=== PATIENT | female | born 1975 | race Caucasian/White ===

== ENCOUNTER 2018-09-03 12:41 | Emergency (ER) | payer OTHER, SELFPAY ==
[2018-09-03] VITALS (8 sets, daily range): BP systolic 96–131; BP diastolic 52–85; PULSE 79–115; RESP 15–18; TEMP 36.9–38.3; O2SAT 93–100; BMI 18.6
--- NOTE | 2018-09-03 13:13 | CT_ITS ---
STUDY: CT ABDOMEN AND PELVIS WITH CONTRAST REASON FOR EXAM: Female, 43 years old. Mid abdominal and back pain. RADIATION DOSAGE (If Supplied By Facility): CTDIvol = ( 7.26 ) mGy, DLP = ( 382.97 ) mGycm TECHNIQUE: Transaxial images were obtained from the dome of the diaphragm to the symphysis pubis with oral contrast. 100ML ml of Isovue 300 contrast was administered. Sagittal and coronal images were reconstructed. Individualized dose optimization techniques were used for this CT. COMPARISON: None. FINDINGS: Mild degree of increased markings at the lung bases suggestive of bibasilar atelectasis. Minimal left pleural effusion. There is a 1 cm questionable nodular density in the lateral aspect of the right middle lobe. This may represent a focal area of atelectasis. The visualized portions of the heart are within normal limits. Normal liver. Normal gallbladder and extrahepatic biliary system. Normal spleen. Normal pancreas. Normal bilateral adrenal glands. Normal right kidney. Normal left kidney. There is a small hiatal hernia. Normal small intestine. Normal colon. The appendix is visualized and appears normal. Normal abdominal aorta. Normal inferior vena cava. Normal retroperitoneum. Distended urinary bladder. Dominant follicle in the left ovary measures 1.7 cm x 1.36. There is evidence of bilateral tubal ligation. Nabothian cyst. Normal abdominal wall. Normal osseous structures. Schmorl's nodes at the T11-T12 vertebral level. CT/Abdomen/Pelvis WITH Contrast IMPRESSION: Distended urinary bladder. Mild degree of bibasilar atelectasis and minimal left pleural effusion. Electronically Signed: Sudhir Carranza MD at 15:36 EST Tel [phone], Service support ,
[2018-09-03 13:32] LABS: Bacteria 0 SEEN /hpf (None Seen); Mucous, Urine 0 SEEN /hpf (<or=2+)
[2018-09-03] MEDS: 0.9% Normal Saline 1,000 ML 1000 ML IV (13:33)
[2018-09-03 13:34] LABS: Color, Urine Yellow (Yellow); Glucose, Dipstick Normal (Normal); Ketone-Dipstick Negative (Negative); Leukocyte Esterase-Dipstick Negative /ul (Negative); Nitrite-Dipstick Negative (Negative); Occult Blood-Urine 50 /ul (Negative); Protein-Dipstick Negative (Negative); Urine Bilirubin Dipstick Negative (Negative); Urine Clarity Sl. Cloudy (Clear); Urine Urobilinogen Normal (Normal)
[2018-09-03 13:40] LABS: Red Blood Cells-Urine 0-5 SEEN /hpf (0-5); Squamous Epithelial Cells - UA 0-5 SEEN /hpf (5-10); White Blood Cells 0-5 SEEN /hpf (0-5)
[2018-09-03 13:42] LABS: Absolute Lymphocyte Count 0.86 X10^3/ul (0.83-4.51); Basophil# 0.01 X10^3/uL; Basophil% 0.1 % (0-1); Eosinophil# 0.29 X10^3/uL; Hematocrit 42.8 % (37-47); Lymphocyte # 0.86 X10^3/ul (4.0); Mean Corp Hgb Conc 32.7 g/gl (32-36); Mean Corpuscular Hgb 31.5 pg (27.0-32.0); Mean Corpuscular Volume 96.2 fL (81-99); Mean Platelet Vol. 9.9 fl (6.2-12.0); Monocyte# 1.14 X10^3/uL; Neutrophil # 11.96 X10^3/uL (2.7-7.7); Neutrophil % 83.7 % (47-70); POSITIVE COUNT NO; POSITIVE DIFFERENTIAL NO; POSITIVE MORPHOLOGY NO; Platelet Count 187 K/mm3 (150-450); RBC Distribution Width CV 13.7 % (11.6-14.6); Red Blood Count 4.45 M/mm3 (4.2-5.4); White Blood Count 14.3 K/mm3 (4.4-11.0)
[2018-09-03 14:05] LABS: AST(SGOT) 17 U/L (15-37); Alanine Aminotransfer ALT/SGPT 23 U/L (13-56); Albumin, Serum 4.2 g/dL (3.2-5.0); Alkaline Phosphatase 66 U/L (45-117); Anion Gap 7 (5-15); BUN 7 mg/dL (7-18); BUN/Creat Ratio 8.9 RATIO (10-20); Calcium,Total 8.8 mg/dL (8.5-10.1); Chloride 101 mmol/L (98-107); Creatinine, Serum 0.79 mg/dL (0.55-1.02); EST Glomerular Filtration Rate 84 mL/min (>60); Est Glom Filt Rate - Afr Amer 101 mL/min (>60); Estimated Creatinine Clearance 74.25 ml/min; Glucose 105 mg/dL (74-106); Potassium 3.5 mmol/L (3.5-5.1); Protein, Total 8.2 g/dL (6.4-8.2); Sodium Level 135 mmol/L (136-145)
--- NOTE | 2018-09-03 15:08 | ED.RN ---
DR BRANNON AWARE OF PT TRIGGERING SEPSIS RISK WITH HEART RATE >90, WBC 14.3. NO NEW ORDERS AT THIS TIME.
--- NOTE | 2018-09-03 16:13 | ED.RN ---
NOTIFIED TEMP 101. PT COVERED WITH 4 BLANKETS, STATES SHE IS ALWAYS FREEZING. WILL RECHECK.
[2018-09-03] MEDS: Acetaminophen 500 MG Tablet 1000 MG PO (16:26)
--- NOTE | 2018-09-03 16:30 | RAD_ITS ---
STUDY: X-RAY CHEST REASON FOR EXAM: Female, 43 years old. Fever TECHNIQUE: Frontal and lateral views of the chest were obtained. COMPARISON: None. FINDINGS: Lines and tubes: None. Lungs: Adequately aerated. Minimal increased markings in both lung bases. Pleura: Trace blunting of the left costophrenic angle. Mediastinum/wolfgang: Unremarkable. Cardiovascular: Normal size cardiac silhouette. Central vascularity unremarkable. Thoracic aorta unremarkable. Soft tissues: Unremarkable. Bones: Unremarkable. Upper abdomen: No demonstrated abnormality. RAD/Chest PA and Lateral IMPRESSION: Trace left pleural effusion without evidence of focal consolidation. Minimal bibasilar atelectasis. Electronically Signed: Belia Lockwood MD at 17:16 EST Tel Direct: [phone], Service support ,
--- NOTE | 2018-09-03 16:41 | ED.DCSUM_ITS ---
- ER Visit Summary Date of Service: 09/03/18 Chief Complaint: Abdominal pain. History of Present Illness: The patient is a 43 F with chief complaint of abdominal pain. She actually started having symptoms about a week ago, she had pressure in her bladder and was placed on Bactrim. She still has some symptoms but now she has some back pain associated with cough and it was noticed that she had a fever of 100.4. She has a cough and upper airway congestion, however that is only found on review of systems and she is not complaining of these. Nausea vomiting diarrhea. No vaginal discharge, no dyspareunia. Physical Examination: She is sitting comfortably in bed speaking to me, she last. She certainly does not appear toxic. Moist mucous membranes, she has rhinorrhea, bulging TMs bilaterally, she has postnasal drip. She has swollen nasal turbinates. No C-spine tenderness supple neck. Regular rate and rhythm without any obvious murmurs Clear lungs bilaterally speaking in full sentences without any obvious respiratory distress Abdomen soft with right lower quadrant and pelvic tenderness. This is been the pain she has had in the past. Does not have flank pain she has upper back pain Skin does not show any obvious rashes or lesions, no trauma. Alert oriented ?3 with no gross focal deficit Emergency Department Course and Treatment: Patient initially had an unremarkable temperature. She developed a temperature in the emergency department. IV fluids were given and Tylenol. She had an unremarkable p.o. and IV contrast CT. She has no urinary tract infection. She is complaining of a cough with congestion. She does have upper respiratory symptoms which could cause a fever. She did not have an influenza vaccine this year. Therefore after reevaluation I ordered IV fluids, and Tylenol. Patient will be reevaluated. If her heart rate improves as well as a temperature she likely can be discharged home. There is no abdominal catastrophe or infectious etiology. I ambulated the patient and she did quite well she does not feel dizzy, she does not feel ill. She does not appear toxic. I will order blood cultures. Disposition: Plan will be to discharge pending results and reassessment Impression: Abdominal pain Fever Upper respiratory infection symptoms This note was generated with [employer] software. It may contain incorrect words, spelling, and punctuation that were not noted in review of the chart prior to signing ED Disposition - Plan for ED Patient: Chief Complaint: Abd Pain Referrals: Louis Florence [Primary Care Provider] -
--- NOTE | 2018-09-03 17:01 | ED.DEP ---
ED Disposition - Plan for ED Patient: Disposition: Home or Assisted Living Chief Complaint: Abd Pain Instructions: ED URI Viral Referrals: Piotr Parson MD [STAFF PHYSICIAN] - 3-5 Days
[2018-09-03] MEDS: 0.9% Normal Saline 1,000 ML 999 ML IV (17:15)
--- NOTE | 2018-09-03 18:09 | ED.DCSUM_ITS ---
- ER Visit Summary Date of Service: 09/03/18 Chief Complaint: Addendum to initial dictation by Dr. Justo Buckner] History of Present Illness: The patient is a 43 F [who was fully evaluated initially by and care of patient turned over to me awaiting results of influenza screen. The influenza screen here was negative. Patient was written for discharge instructions by the previous ER physician.] Physical Examination: [On repeat exam patient feels well. Patient's lungs are clear and she has no respiratory difficulty.] Test Results: [Influenza negative. Chest x-ray was noted to have a small left pleural effusion but no infiltrates.] Emergency Department Course and Treatment: [] Treatment Plan: [Patient to finish her Bactrim prescription that she is currently on for UTI.] Disposition: [Discharged home in stable condition. Patient advised to return if increasing dyspnea or condition should worsen anyway. Impression: [Viral URI] This note was generated with [employer] dictation software. It may contain incorrect words, spelling, and punctuation that were not noted in review of the chart prior to signing ED Disposition - Plan for ED Patient: Disposition: Home or Assisted Living Chief Complaint: Abd Pain Instructions: ED URI Viral Referrals: Piotr Parson MD [STAFF PHYSICIAN] - 3-5 Days
== END 2018-09-03 18:16 | disposition home or self-care (01) ==
PROVIDERS: Emergency Provider Emergency Medicine; Family Provider Family Medicine; PCP Family Medicine
DX: J06.9 Acute upper respiratory infection, unspecified (principal); R10.9 Unspecified abdominal pain; N39.0 Urinary tract infection, site not specified; J90 Pleural effusion, not elsewhere classified; Z72.0 Tobacco use
CPT/HCPCS: 71046; 74177; 80053; 81001; 85025; 87804; 96360; 96361; 99284; J7030; Q9967; A4216

== ENCOUNTER → 2018-09-17 15:30 | Outpatient (CLI) | payer OTHER, SELFPAY ==
[2018-09-03 12:41] VITALS: BMI 18.6
[2018-09-18 13:57] LABS: Chlamydia Trachomatis by PCR Negative (Negative); Neisserai gonorrhoeae by PCR Negative (Negative); Probe Check PASS; Sample Adequacy Control PASS; Specimen Processing Control PASS
[2018-09-20 11:41] LABS: HPV Reflexed? NOT INDICATED
--- OUTSIDE RECORDS SUMMARY | 2018-11-20 06:31 | XMS RPT_ITS ---
:1975 Author Organization OHIP Care Team Providers Name Role Phone MATEO REECE Admitting Unavailable MATEO REECE Attending Unavailable MATEO REECE Primary Care Unavailable Louis Florence Primary Care Unavailable Justo Buckner Attending Unavailable Mateo Reece Attending Unavailable PROBLEMS PROBLEMS DATE TYPE CONDITION / CODE ATTENDING STATUS SOURCE 09/18/2018 Unknown Z12.4 - Encounter Mateo Reece for screening for Community malignant neoplasm Hospital of cervix / Repository Z12.4(ICD-10) 09/18/2018 Unknown Z11.3 - Encounter Mateo Reece for screening for Community infections with a Hospital predominantly Repository sexual mode of transmission / Z11.3(ICD-10) PROCEDURES PROCEDURES No Procedure Records FoundRESULTS RESULTS TSH Collected: 09/17/2018 Status: F Source: [facility] 3:30 PM [facility] REPOSITORY TYPE CODE TESTS RESULT OUT OF RANGE REFERENCE UNITS LAB TSH(LOINC) 0.34 - 5.60 uIU/ml TSH 3.73 Performed By: #### [id number] #### [facility],[address] [place] [address] FSH [CCL] Collected: 09/17/2018 Status: F Source: [facility] 3:30 PM [facility] REPOSITORY TYPE CODE TESTS RESULT OUT OF RANGE REFERENCE UNITS LAB FSH [CCL](LOINC ) FSH [CCL] Result Comment: _FSH [CCL]_ FSH [CCL] Reported: 09/19/2018 10:57 Status=F TEST RESULT FLAG RANGE UNITS FSH 60.4 mU/mL 09/19/18.1100.[email or web address].ATLR Reference range: Follicular: 2-11 Midcycle: 10-30 Luteal: 1-9 Post Erika: 20-100 [facility] [address] [place] [address] Eloise Hull M.D. [id number] Performed By: #### [id number] #### [facility],[address] [place] [address] FSH Collected: 09/17/2018 Status: F Source: [place] 3:30 PM [facility]IN[facility] REFERENCE REPOSITORY TYPE CODE TESTS RESULT OUT OF RANGE REFERENCE UNITS LAB FSH([facility]) FSH Result Comment: 60.4 Reference Follicular: 2-11 Midcycle: 10-30 Luteal: 1-9 Post Erika: 20-100 range: Follicular: 2-11 Midcycle: 10-30 Luteal: 1-9 Post Hersey: 20-100 Performed By: #### FSH #### [facility] Routine Lab [address] [address] [address]/NG [facility] BY PCR Collected: 09/17/2018 Status: F Source: [place] 3:30 PM [facility] [place] TYPE CODE TESTS RESULT OUT OF RANGE REFERENCE UNITS LAB L8200.2100 Negative Normal Chlam Negative Trac PCR LAB L8200.2200 Negative Normal NG by Negative PCR Performed By: #### L8200.2000 #### [facility] [place], [address] PAP IG W/REFLEX HR Collected: 09/17/2018 Status: F Source: [facility] 3:30 PM [facility] [place] Order Comment: CYTOLOGY INFORMATION: - CLINICAL INFORMATION: - DATE LMP/MENOPAUSE: 06/23/18 LMP - COLLECTION VIAL: Thin Prep Vial - POPCORN ATTENDANT SOURCE: CERVICAL/ENDOCERVICAL - COLLECTION TECHNIQUE: BRUSH/SPATULA Specimen Comment: [id number] Specimen Comment: Source.............Cervix;Endocervix Specimen Comment: LMP / Prev Treat...[id number] Specimen Comment: No. of containers..01 ThinPrep Vial TYPE CODE TESTS RESULT OUT OF RANGE REFERENCE UNITS LAB L7400.0800 . Normal DIAGN Comment Result Comment: NEGATIVE FOR INTRAEPITHELIAL LESION OR MALIGNANCY. LAB L7400.0900 . Normal ADEQ Comment Result Comment: Satisfactory for evaluation. Endocervical and/or squamous metaplastic cells (endocervical component) are present. LAB L7400.1400 . Normal PERFORM Comment Result Comment: Daniela Maki Commutator Inspector (ASCP) LAB L7400.2575 . Normal TEST METHOD Comment Result Comment: This liquid based ThinPrep(R) pap test was screened with the use of an image guided system. LAB L7400.2600 . Normal . COMM LAB L7400.2700 . Normal PAPSMR Comment Result Comment: The Pap smear is a screening test designed to aid in the detection of premalignant and malignant conditions of the uterine cervix. It is not a diagnostic procedure and should not be used as the sole means of detecting cervical cancer. Both false-positive and false-negative reports do occur. LAB L7400.2800 . Normal HPV RFLX Comment Result Comment: The HPV DNA reflex criteria were not met with this specimen result therefore, no HPV testing was performed. Performed at: [address] [id number] Solar Sales Estimator: Emily Dias MD, Phone: [phone] Performed By: #### L7400.0357 #### [facility] (refer to report for specific site) refer to report for address and phone number EMERGENCY DEPARTMENT Observed: 2018 Status: F Source: [place] SUMMARY 6:09 PM [facility] [place] [facility] Medical Records Department [address] [place] [address] Emergency Department Summary 09/03/181806 MR#: [id number] Acct: [id number] Name: JACOB CARTER Rep #: [id number] : 1975 43 From: Saturnino Estrada DO PCP: Louis Florence MD Status: REG ER - ER Visit Summary Date of Service: 09/03/18 Chief Complaint: Addendum to initial dictation by Dr. Justo Buckner] History of Present Illness: The patient is a 43 F [who was fully evaluated initially by and care of patient turned over to me awaiting results of influenza screen. The influenza screen here was negative. Patient was written for discharge instructions by the previous ER physician.] Physical Examination: [On repeat exam patient feels well. Patient's lungs are clear and she has no respiratory difficulty.] Test Results: [Influenza negative. Chest x-ray was noted to have a small left pleural effusion but no infiltrates.] Emergency Department Course and Treatment: [] Treatment Plan: [Patient to finish her Bactrim prescription that she is currently on for UTI.] Disposition: [Discharged home in stable condition. Patient advised to return if increasing dyspnea or condition should worsen anyway. Impression: [Viral URI] This note was generated with Southtree dictation software. It may contain incorrect words, spelling, and punctuation that were not noted in review of the chart prior to signing ED Disposition - Plan for ED Patient: Disposition: Home or Assisted Living Chief Complaint: Abd Pain Instructions: ED URI Viral Referrals: Mateo Parson MD [STAFF PHYSICIAN] - 3-5 Days What to do if you have Problems For any increased pain, shortness of breath, bleeding, nausea or vomiting, chest pain, or any unexpected problems, contact your Primary Care Provider. Call [facility] ([phone]) or report to the closest Emergency Room. Call 911 if necessary. 09/03/181808 <Electronically signed by Remus Ungur DO> Date Remus Ungur DO Cosigner Signature (If Indicated): Date CC: Louis Florence MD EMERGENCY DEPARTMENT Observed: 2018 Status: F Source: [place] SUMMARY 5:04 PM [facility] [place] [facility] Medical Records Department [address] [place] [address] Emergency Department Summary 09/03/18 1634 MR#: [id number] Acct: [id number] Name: JACOB CARTER Rep #: [id number] : 1975 43 From: Justo Buckner MD PCP: Louis Florence MD Status: REG ER - ER Visit Summary Date of Service: 09/03/18 Chief Complaint: Abdominal pain. History of Present Illness: The patient is a 43 F with chief complaint of abdominal pain. She actually started having symptoms about a week ago, she had pressure in her bladder and was placed on Bactrim. She still has some symptoms but now she has some back pain associated with cough and it was noticed that she had a fever of 100.4. She has a cough and upper airway congestion, however that is only found on review of systems and she is not complaining of these. Nausea vomiting diarrhea. No vaginal discharge, no dyspareunia. Physical Examination: She is sitting comfortably in bed speaking to me, she last. She certainly does not appear toxic. Moist mucous membranes, she has rhinorrhea, bulging TMs bilaterally, she has postnasal drip. She has swollen nasal turbinates. No C-spine tenderness supple neck. Regular rate and rhythm without any obvious murmurs Clear lungs bilaterally speaking in full sentences without any obvious respiratory distress Abdomen soft with right lower quadrant and pelvic tenderness. This is been the pain she has had in the past. Does not have flank pain she has upper back pain Skin does not show any obvious rashes or lesions, no trauma. Alert oriented 3 with no gross focal deficit Emergency Department Course and Treatment: Patient initially had an unremarkable temperature. She developed a temperature in the emergency department. IV fluids were given and Tylenol. She had an unremarkable p.o. and IV contrast CT. She has no urinary tract infection. She is complaining of a cough with congestion. She does have upper respiratory symptoms which could cause a fever. She did not have an influenza vaccine this year. Therefore after reevaluation I ordered IV fluids, and Tylenol. Patient will be reevaluated. If her heart rate improves as well as a temperature she likely can be discharged home. There is no abdominal catastrophe or infectious etiology. I ambulated the patient and she did quite well she does not feel dizzy, she does not feel ill. She does not appear toxic. I will order blood cultures. Disposition: Plan will be to discharge pending results and reassessment Impression: Abdominal pain Fever Upper respiratory infection symptoms This note was generated with Kelkooation software. It may contain incorrect words, spelling, and punctuation that were not noted in review of the chart prior to signing ED Disposition - Plan for ED Patient: Chief Complaint: Abd Pain Referrals: Louis Florence [Primary Care Provider] - What to do if you have Problems For any increased pain, shortness of breath, bleeding, nausea or vomiting, chest pain, or any unexpected problems, contact your Primary Care Provider. Call [facility] ([phone]) or report to the closest Emergency Room. Call 911 if necessary. 09/03/181703 <Electronically signed by Justo Buckner MD> Date Justo Buckner MD Cosigner Signature (If Indicated): Date CC: Louis Florence MD DISCHARGE INSTRUCTION Observed: 2018 Status: F Source: [place] 5:03 PM [facility] [place] [facility] Medical Records Department [address] [place] [address] Discharge Instruction 09/03/181700 MR#: [id number] Acct: [id number] Name: JACOB CARTER Rep #: [id number] : 1975 43 From: Justo Buckner MD PCP: Louis Florence MD Status: REG ER ED Disposition - Plan for ED Patient: Disposition: Home or Assisted Living Chief Complaint: Abd Pain Instructions: ED URI Viral Referrals: Mateo Parson MD [STAFF PHYSICIAN] - 3-5 Days What to do if you have Problems For any increased pain, shortness of breath, bleeding, nausea or vomiting, chest pain, or any unexpected problems, contact your Primary Care Provider. Call [facility] ([phone]) or report to the closest Emergency Room. Call 911 if necessary. 09/03/18 1703 <Electronically signed by Justo Buckner MD> Date Justo Buckner MD Cosigner Signature (If Indicated): Date CC: Louis Florence MD Observed: 2018 Status: F Source: [place] INFLUENZA A+B (RAPID 5:00 PM [facility] [place] [place] REPOSITORY FLU A/B Rapid Negative test results should be confirmed with FLU PANEL MOLECULAR if indicated. Influenza Ag, Direct Presumptive NEGATIVE for Influenza A/B Antigen (See Note) Performed By: #### M101.0101 #### [facility] [address] [place] [address]. [place], [address] CHEST PA AND LATERAL Observed: 2018 Status: F Source: [place] 4:26 PM [facility] [place] [facility] Imaging Services [address] [place] [address] Chest PA and Lateral MR#: [id number] Acct: [id number] Name: JACOB CARTER Rep #: [id number] : 1975 F 43 From: Belia Lockwood MD PCP: Louis Florence MD Status: REG ER Study: Chest PA and Lateral Date of Exam: 09/03/18 Exam# [id number] Ordering Dr: Justo Buckner MD STUDY: X-RAY CHEST REASON FOR EXAM: Female, 43 years old. Fever TECHNIQUE: Frontal and lateral views of the chest were obtained. COMPARISON: None. FINDINGS: Lines and tubes: None. Lungs: Adequately aerated. Minimal increased markings in both lung bases. Pleura: Trace blunting of the left costophrenic angle. Mediastinum/wolfgang: Unremarkable. Cardiovascular: Normal size cardiac silhouette. Central vascularity unremarkable. Thoracic aorta unremarkable. Soft tissues: Unremarkable. Bones: Unremarkable. Upper abdomen: No demonstrated abnormality. RAD/Chest PA and Lateral IMPRESSION: Trace left pleural effusion without evidence of focal consolidation. Minimal bibasilar atelectasis. Electronically Signed: Belia Lockwood MD at 17:16 EST Tel Direct: [phone], Service support , CC: Justo Buckner MD; Louis Florence MD Investigation Specialist: Signed URINALYSIS, COMPLETE Collected: 2018 Status: F Source: [place] 1:20 PM [facility] [place] Order Comment: How was Urine Obtained? CLEAN CATCH TYPE CODE TESTS RESULT OUT OF RANGE REFERENCE UNITS LAB L400.3000 Yellow COLOR Normal Yellow LAB L400.3050 Clear Normal CLARITY Sl. Cloudy LAB L400.3200 Normal mg/dl Normal GLUCOSE, UR Normal LAB L400.3300 Negative mg/dL Normal BILIRUBIN URINE Negative LAB L400.3400 Negative mg/dl Normal KETONE UR Negative LAB L400.3465 1.002-1.030 Normal SP.GR. DIPSTX 1.010 LAB L400.3550 5.0 - 8.0 pH UR Normal 8.0 LAB L400.3600 Negative mg/dl PROT Normal DIPSTX Negative LAB L400.3700 Normal mg/dl Normal UROBILI Normal LAB L400.3750 Negative Normal NITRITE UR Negative LAB L400.3780 Negative /ul High 50 OCCULT BLOOD-UR LAB L400.3800 Negative /ul LEUK Normal ESTERASE Negative LAB L400.4050 0-5 /hpf WBC Normal 0-5 SEEN LAB L400.4100 0-5 /hpf Normal RBC-UA 0-5 SEEN LAB L400.4150 5-10 /hpf SQUAM Normal EPI 0-5 SEEN LAB L400.4300 None Seen /hpf 0 Normal BACTERIA SEEN LAB L400.4350 <or=2+ /hpf 0 Normal MUCUS, URINE SEEN Performed By: #### L400.0001 #### [facility] [address] [place], [place], [id number] CBC W/DIFF, AUTOMATED Collected: 2018 Status: F Source: [place] 1:20 PM [facility] [place] TYPE CODE TESTS RESULT OUT OF RANGE REFERENCE UNITS LAB L100.1000 4.4-11.0 K/mm3 High WBC 14.3 LAB L100.1200 4.2-5.4 M/mm3 Normal RBC 4.45 LAB L100.1300 12.0-15.0 g/dl Normal HGB 14.0 LAB L100.1400 37-47 % Normal HCT 42.8 LAB L100.1500 81-99 fL Normal MCV 96.2 LAB L100.1600 27.0-32.0 pg Normal MCH 31.5 LAB L100.1700 32-36 g/gl Normal MCHC 32.7 LAB L100.1810 11.6-14.6 % Normal RDW CV 13.7 LAB L100.1820 35.1-43.9 fl High RDW SD 48.0 LAB L100.1900 150-450 K/mm3 Normal PLT 187 LAB L100.2000 6.2-12.0 fl Normal MPV 9.9 LAB L100.2100 47-70 % High NEUT% 83.7 LAB L100.2200 19-41 % Low LY% 6.0 LAB L100.2300 0-10 % Normal MONO% 8.0 LAB L100.2400 0-5 % Normal EO% 2.0 LAB L100.2500 0-1 % Normal BASO% 0.1 LAB L100.2550 0.0-0.9 % Normal IM GRAN % 0.200 Result Comment: IG% - Immature Granulocytes (promyelocytes, myelocytes and metamyelocytes) > 1% indicates that a LEFT SHIFT is Present. LAB L100.2620 2.0-7.7 X10 3/uL High Absolute Neut 12.0 LAB L100.2720 0.83-4.51 X10 3/ul Normal Absolute Lymph 0.86 Performed By: #### L100.0100 #### [facility] [address] [place], [address] COMPREHENSIVE METABOLIC Collected: 2018 Status: F Source: [facility] 1:20 PM [facility] [place] TYPE CODE TESTS RESULT OUT OF RANGE REFERENCE UNITS LAB L501.0100 74-106 mg/dL Normal GLU 105 Result Comment: Fasting Glucose result from 100 to 125 mg/dL suggests IMPAIRED HOMEOSTASIS per A.D.A. criteria. Please note revised GLUCOSE reference range effective 2017. LAB L501.1000 7-18 mg/dL Normal BUN 7 LAB L501.1100 0.55-1.02 mg/dL Normal CREAT,SERUM 0.79 Result Comment: The validity of the calculated GFR AND GFRAA in patients over 70 years has not been determined. Clinical correlation is essential. LAB L501.1110 >60 mL/min Normal EST GFR 84 Result Comment: Non- GFR Calc LAB L501.1115 >60 mL/min Normal EST GFR - AA 101 Result Comment: GFR Calc LAB L501.1255 ml/min Normal Estimated CRCL 74.25 LAB L501.1300 10-20 RATIO Low BUN/CRE 8.9 LAB L501.1500 6.4-8. g/dL Normal 2 T PROT 8.2 LAB L501.1800 3.2-5. g/dL Normal 0 ALB 4.2 LAB L501.1950 2.2-4. g/dL Normal 2 GLOB 4.0 LAB L501.2000 0.9-2. RATIO Normal 4 A/G 1.0 LAB L501.2200 8.5-10 mg/dL Normal .1 CA 8.8 LAB L501.4100 15-37 U/L Normal AST 17 LAB L501.4305 45-117 U/L Normal ALK P 66 LAB L501.4405 13-56 U/L Normal ALT 23 LAB L501.4600 0.20-1 mg/dL Normal .00 T BILI 0.90 LAB L501.5300 136-14 mmol/L Low 5 NA 135 LAB L501.5600 3.5-5. mmol/L Normal 1 K 3.5 LAB L501.5900 98-107 mmol/L Normal CL 101 LAB L501.6100 21.0-3 mmol/L Normal 2.0 CO2 27.0 LAB L501.6200 5-15 Normal GAP 7 Performed By: #### L500.4050 #### [facility] [address] [facility] [place], [address] ABDOMEN/PELVIS WITH Observed: 2018 Status: F Source: [place] CONTRAST 1:14 PM [facility] [place] [facility] Imaging Services [address] [place] [address] Abdomen/Pelvis WITH Contrast MR#: [id number] Acct: [id number] Name: BERNARDOJACOB Saravanan Rep #: [id number] : 1975 F 43 From: Sudhir Carranza MD PCP: Louis Florence MD Status: REG ER Study: Abdomen/Pelvis WITH Contrast Date of Exam: 09/03/18 Exam# [id number] Ordering Dr: Justo Buckner MD STUDY: CT ABDOMEN AND PELVIS WITH CONTRAST REASON FOR EXAM: Female, 43 years old. Mid abdominal and back pain. RADIATION DOSAGE (If Supplied By Facility): CTDIvol = ( 7.26 ) mGy, DLP = ( 382.97 ) mGycm TECHNIQUE: Transaxial images were obtained from the dome of the diaphragm to the symphysis pubis with oral contrast. 100ML ml of Isovue 300 contrast was administered. Sagittal and coronal images were reconstructed. Individualized dose optimization techniques were used for this CT. COMPARISON: None. FINDINGS: Mild degree of increased markings at the lung bases suggestive of bibasilar atelectasis. Minimal left pleural effusion. There is a 1 cm questionable nodular density in the lateral aspect of the right middle lobe. This may represent a focal area of atelectasis. The visualized portions of the heart are within normal limits. Normal liver. Normal gallbladder and extrahepatic biliary system. Normal spleen. Normal pancreas. Normal bilateral adrenal glands. Normal right kidney. Normal left kidney. There is a small hiatal hernia. Normal small intestine. Normal colon. The appendix is visualized and appears normal. Normal abdominal aorta. Normal inferior vena cava. Normal retroperitoneum. Distended urinary bladder. Dominant follicle in the left ovary measures 1.7 cm x 1.36. There is evidence of bilateral tubal ligation. Nabothian cyst. Normal abdominal wall. Normal osseous structures. Schmorl's nodes at the T11-T12 vertebral level. CT/Abdomen/Pelvis WITH Contrast IMPRESSION: Distended urinary bladder. Mild degree of bibasilar atelectasis and minimal left pleural effusion. Electronically Signed: Sudhir Carranza MD at 15:36 EST Tel [phone], Service support , CC: Justo Buckner MD; Louis Florence MD Investigation Specialist: Signed PROGRESS Observed: 2018 Status: COMPLETED Source: [place] 12:39 PM [facility] [place] REPOSITORY HNO ID: [id number] Author: Mandy Cates Service: (none) Author Type: Nurse Practitioner Type: Progress Notes Filed: 2018 12:58 PM Note Text: Subjective The history is provided by the patient. No sign language instructor was used. JESSIE Jacob Carter is a 43 year old female who presents today for CC of pelvic pain and lower dull back pain. This started 5 days ago and is worsening. She has been on macrobid since 08/29 for UTI symptoms and no improvement. She tried to get into her pcp and POPCORN ATTENDANT no appointments available. BP 110/70 Pulse 106 Temp (!) 38 ?C (100.4 ?F) (Tympanic) Resp 18 Wt 52.2 kg (115 lb) Social History Marital status: Spouse name: Years of education: Number of children: Social History Main Topics Smoking status: Current Every Day Smoker Packs/day: 0.00 Years: 0.00 Smokeless tobacco: Never Used No past medical history on file. I have confirmed and edited as necessary, the [facility] ROS Objective Physical Exam Due to nature of patient's complaint and lack of investigative tools available at [facility], recommend patient be seen at nearest ED for further work up of abdominal pain. Patient's daughter was with her will take to [place] ED, information sent with patient. ED notified Diagnosis and treatment plan were discussed and questions were answered to the patient's satisfaction. Pt acknowledged understanding of concepts and follow up plan. Specific signs and symptoms that would indicate the need for higher level of care were discussed in detail warranting prompt ER evaluation. FAWAD ReynaOV Observed: 2018 Status: COMPLETED Source: [place] 11:45 AM [facility] REPOSITORY Office Visit (WSTR) JACOB CARTER ([id number]) 1975 F Date Time Provider Department 09/03/18 11:45 AM MANDY CATES (KAREN) WSTR During your visit today, we recorded the following information about you: Temperature Pulse Respiration Blood pressure 100.4 degrees 106/minute 18/minute 110/70 Weight 52.2 kg Mandy Cates APRN.CNP 2018 12:58 PM Signed Subjective The history is provided by the patient. No sign language instructor was used. HPI Jacob Carter is a 43 year old female who presents today for CC of pelvic pain and lower dull back pain. This started 5 days ago and is worsening. She has been on macrobid since 08/29 for UTI symptoms and no improvement. She tried to get into her pcp and POPCORN ATTENDANT no appointments available. BP 110/70 Pulse 106 Temp (!) 38 ?C (100.4 ?F) (Tympanic) Resp 18 Wt 52.2 kg (115 lb) Social History Marital status: Spouse name: Years of education: Number of children: Social History Main Topics Smoking status: Current Every Day Smoker Packs/day: 0.00 Years: 0.00 Smokeless tobacco: Never Used No past medical history on file. I have confirmed and edited as necessary, the [facility] ROS Objective Physical Exam Due to nature of patient's complaint and lack of investigative tools available at [facility], recommend patient be seen at nearest ED for further work up of abdominal pain. Patient's daughter was with her will take to [place] ED, information sent with patient. ED notified Diagnosis and treatment plan were discussed and questions were answered to the patient's satisfaction. Pt acknowledged understanding of concepts and follow up plan. Specific signs and symptoms that would indicate the need for higher level of care were discussed in detail warranting prompt ER evaluation. Mandy Cates APRN.WHARF HELPER Referring Provider: SELF [200] Allergies As of Date: 2018 Noted Allergy Reaction SULFA (SULFONAMIDE ANTIBIOTICS) 06/26/2013 10 - Anaphylaxis Z MELIA (AZITHROMYCIN) 06/26/2013 2 - Rash Date Reviewed: 2018 Reviewed by: Janelle Seth LPN - Fully Assessed Reason for Visit: Pain, Back [855] Cmt: was seen last week and curntly on Macrobid but dos not think she is geting better Primary Visit Diagnosis:Low back pain, unspecified back pain laterality, unspecified chronicity, with sciatica presence unspecified [M54.5] Order(s):UA DIP, URINE (POC) [[id number]] Order #: [id number] #:[id number] Prescriptions as of 2018 Sig: NITROFURANTOIN MONOHYDRATE AND * Take 1 capsule by mouth twice* Problem List As Of Date: 2018 (None) Letter Text Jacob [facility] [address] [facility] [address] Dept: [phone] Date this form was last completed: 2018 Reason for Emergency Transport: Fever and lower abdominal and pelvic pain Name: Jacob Carter [facility] Number : [id number] Age: [age] year old : 1975 Address: [address] [place], [place] [id number] (home) Primary care physician: MD Louis Shay MD ([facility]) [address] [facility] [place] [address] Current Vital Signs: BP 110/70 Pulse 106 Temp (!) 38 ?C (100.4 ?F) (Tympanic) Resp 18 Wt 52.2 kg (115 lb) Allergies: Sulfa (Sulfonamide Antibiotics); Z Melia [Azithromycin] Current Medications: Current Outpatient Prescriptions: nitrofurantoin monohydrate and macrocrystal (MACROBID) 100 mg capsule Take 1 capsule by mouth twice daily with meals for 7 days. No current facility-administered medications for this visit. Component Latest Ref Rng AND Units 2018 GLUCOSE UA (POCT) Negative mg/dL Negative BILIRUBIN UA (POCT) Negative Negative KETONE UA (POCT) Negative mg/dL Negative SPECIFIC GRAVITY UA (POCT) 1.005 - 1.030 1.015 HEMOGLOBIN/BLOOD UA (POCT) Negative Moderate (A) PH UA (POCT) 4.5 - 8.0 7.5 PROTEIN UA (POCT) Negative mg/dL Negative UROBILINOGEN UA (POCT) Normal E.U./dL 0.2 NITRITE UA (POCT) Negative Negative LEUKOCYTES UA (POCT) Negative Negative COLOR UA (POCT) Yellow CLARITY UA (POCT) Clear Culture (Final) CCM 10,000 - <50,000 CFU/ml Normal urogenital erick Result History URINE CULTURE (Order #[id number]) on 08/31/2018 - Order Result History Report Result Information Status: Final result (Collected: 08/29/2018 ?3:39 AM) Provider Status: Reviewed Problem List: There is no problem list on file for this patient. Past Medical History: No past medical history on file. Past Surgical History: No past surgical history on file. Insurance information: Payor: MMO / Plan: MMO [employer] / Product Type: PPO / Emergency Contact: Extended Emergency Contact Information Primary Emergency Contact: Irma Carter Mobile Relation: Spouse Encounter Status:Closed by MANDY CATES CNP on 09/03/18 PROGRESS Observed: 08/29/2018 Status: COMPLETED Source: [place] 2:33 PM [facility] [place] REPOSITORY HNO ID: [id number] Author: Danitza Garcia) Service: (none) Author Type: Nurse Practitioner Type: Progress Notes Filed: 08/29/2018 2:56 PM Note Text: Subjective HPI HPI Jacob Carter is a 42 year old female who presents today for CC of urinary burning. This started 11 days ago. Has tried azo with relief. Symptoms are worsened by nothing. Risk factors hx of uti, this feels classic for patients symptoms. Patient keyon menopausal, no recent period .Patient presents with: UTI No past medical history on file. No past surgical history on file. ALLERGIES Sulfa (Sulfonamide Antibiotics); Z Melia [Azithromycin] MEDICATIONS No prescriptions on file. No family history on file. Social History Substance Use Topics - Smoking status: Current Every Day Smoker - Smokeless tobacco: Never Used - Alcohol use Not on file Review of Systems Constitutional: Negative for chills, fever and weight loss. Respiratory: Negative for cough, shortness of breath and wheezing. Cardiovascular: Negative for chest pain and palpitations. Gastrointestinal: Negative for abdominal pain, blood in stool, constipation, diarrhea, heartburn, melena, nausea and vomiting. Genitourinary: Positive for dysuria. Negative for flank pain, frequency, hematuria and urgency. Objective Blood pressure 90/60, pulse 79, temperature 36.1 ?C (97 ?F), temperature source Left Tympanic, resp. rate 16, weight 53.1 kg (117 lb), SpO2 99 %. Physical Exam Constitutional: She is well-developed, well-nourished, and in no distress. Non-toxic appearance. She does not have a sickly appearance. No distress. Cardiovascular: Normal rate, regular rhythm and normal heart sounds. Pulmonary/Chest: Effort normal and breath sounds normal. Abdominal: Soft. Normal appearance and bowel sounds are normal. There is no hepatosplenomegaly. There is no tenderness. There is no CVA tenderness. Skin: Skin is warm and dry. ASSESSMENT/PLAN: 1. Dysuria - ICD9: 788.1, ICD10: R30.0 acute - UA positive for hematuria - Send urine for culture - Begin treatment with Macrobid 100 mg BID for 7 days - Patient education for prevention given - UA DIP, URINE (POC) - URINE CULTURE - NITROFURANTOIN MONOHYDRATE AND MACROCRYSTAL 100 MG ORAL CAP Prescription instructions reviewed with patient as applicable. Patient advised if symptoms do not improve or if symptoms worsen sooner, to contact the office for further evaluation by their primary care physician. Potential red flag symptoms discussed with the patient. Reviewed appropriate action plan to take if red flag symptoms occur. Patient agreeable to treatment plan. Danitza Colin APRN.CNP CNOV Observed: 08/29/2018 Status: COMPLETED Source: [place] 2:15 PM [facility] REPOSITORY Office Visit ([facility]) BERNARDOJACOB Saravanan ([id number]) 1975 F Date Time Provider Department 08/29/18 2:15 PM DANITZA COLIN (KAREN) [facility] During your visit today, we recorded the following information about you: Temperature Pulse Respiration Blood pressure 97 degrees 79/minute 16/minute 90/60 Weight 53.1 kg Danitza Colin APRN.CNP 08/29/2018 2:56 PM Signed Subjective HPI HPI Jacob Saravanan Carter is a 42 year old female who presents today for CC of urinary burning. This started 11 days ago. Has tried azo with relief. Symptoms are worsened by nothing. Risk factors hx of uti, this feels classic for patients symptoms. Patient keyon menopausal, no recent period .Patient presents with: UTI No past medical history on file. No past surgical history on file. ALLERGIES Sulfa (Sulfonamide Antibiotics); Z Melia [Azithromycin] MEDICATIONS No prescriptions on file. No family history on file. Social History Substance Use Topics - Smoking status: Current Every Day Smoker - Smokeless tobacco: Never Used - Alcohol use Not on file Review of Systems Constitutional: Negative for chills, fever and weight loss. Respiratory: Negative for cough, shortness of breath and wheezing. Cardiovascular: Negative for chest pain and palpitations. Gastrointestinal: Negative for abdominal pain, blood in stool, constipation, diarrhea, heartburn, melena, nausea and vomiting. Genitourinary: Positive for dysuria. Negative for flank pain, frequency, hematuria and urgency. Objective Blood pressure 90/60, pulse 79, temperature 36.1 ?C (97 ?F), temperature source Left Tympanic, resp. rate 16, weight 53.1 kg (117 lb), SpO2 99 %. Physical Exam Constitutional: She is well-developed, well-nourished, and in no distress. Non-toxic appearance. She does not have a sickly appearance. No distress. Cardiovascular: Normal rate, regular rhythm and normal heart sounds. Pulmonary/Chest: Effort normal and breath sounds normal. Abdominal: Soft. Normal appearance and bowel sounds are normal. There is no hepatosplenomegaly. There is no tenderness. There is no CVA tenderness. Skin: Skin is warm and dry. ASSESSMENT/PLAN: 1. Dysuria - ICD9: 788.1, ICD10: R30.0 acute - UA positive for hematuria - Send urine for culture - Begin treatment with Macrobid 100 mg BID for 7 days - Patient education for prevention given - UA DIP, URINE (POC) - URINE CULTURE - NITROFURANTOIN MONOHYDRATE AND MACROCRYSTAL 100 MG ORAL CAP Prescription instructions reviewed with patient as applicable. Patient advised if symptoms do not improve or if symptoms worsen sooner, to contact the office for further evaluation by their primary care physician. Potential red flag symptoms discussed with the patient. Reviewed appropriate action plan to take if red flag symptoms occur. Patient agreeable to treatment plan. Danitza Colin APRN.KAERN Colin APRN.KAREN 08/29/2018 2:49 PM Signed URINARY TRACT INFECTION GENERAL INFORMATION: A urinary tract infection (UTI) is an infection of the bladder or kidneys. A bladder infection, called cystitis, is the more common type. If the infection travels up to the kidneys, it is called pyelonephritis. This can be more serious. UTIs are a common problem in women. Having sexual relations can leave a woman more susceptible to developing a UTI, but it is not sexually transmitted like gonorrhea. Some women have a problem with recurrent UTIs. INSTRUCTIONS: 1. Your doctor prescribed an antibiotic to treat the UTI. Take exactly as directed. Be sure to take all the medication prescribed, even if your symptoms disappear. If you stop treatment early, the infection may not be fully treated and the symptoms could come back again. 2. Get plenty of rest. You may take acetaminophen for fever and aches. 3. Drink 6 to 8 glasses of fluids, especially water, every day. This helps wash out germs from your urinary tract. Cranberry juice or other sources of vitamin C are also good for you. 4. Urinate often, as soon as you feel the urge. Empty your bladder completely. Urinate before and after you have sex. 5. Always wipe from front to back after going to the bathroom. This pushes germs away from your bladder, rather than towards it. 6. Showers are better than baths, and you should wash the genital area daily. Avoid bubble bath or bath oils if you do take a bath. 7. Wear underwear and pantyhose with a cotton crotch. CONTACT YOUR DOCTOR: 1. You have a temperature over 102F (38.8C) after 48 hours on medication. 2. You notice blood in your urine. 3. Your symptoms don't improve in 2 days. 4. You develop nausea, vomiting, diarrhea, or a rash. 5. You develop new or unexplained symptoms. These may be related to the medication you are taking. 6. Your symptoms return after you finish treatment. RETURN TO THE EMERGENCY DEPARTMENT IF: You develop vomiting and can't keep your medication or fluids down. Referring Provider: SELF [[id number]] Allergies As of Date: 08/29/2018 Noted Allergy Reaction SULFA (SULFONAMIDE ANTIBIOTICS) 06/26/2013 10 - Anaphylaxis Z MELIA (AZITHROMYCIN) 06/26/2013 2 - Rash Date Reviewed: 08/29/2018 Reviewed by: [facility]) - Fully Assessed Reason for Visit: UTI [116] Primary Visit Diagnosis:Dysuria [R30.0] Order(s):UA DIP, URINE (POC) [3637158] Order #: [id number] #:[id number] URINE CULTURE [SQURCUL] Order #: [id number] nitrofurantoin monohydrate and macrocrystal (MACROBID) 100 mg capsuleTake 1 capsule by mouth twice daily with meals for 7 days.Disp: 14 capsuleRfl: 0 Prescriptions as of 08/29/2018 Sig: NITROFURANTOIN MONOHYDRATE AND * Take 1 capsule by mouth twice* Problem List As Of Date: 08/29/2018 (None) Other instructions from your clinician: URINARY TRACT INFECTION GENERAL INFORMATION: A urinary tract infection (UTI) is an infection of the bladder or kidneys. A bladder infection, called cystitis, is the more common type. If the infection travels up to the kidneys, it is called pyelonephritis. This can be more serious. UTIs are a common problem in women. Having sexual relations can leave a woman more susceptible to developing a UTI, but it is not sexually transmitted like gonorrhea. Some women have a problem with recurrent UTIs. INSTRUCTIONS: 1. Your doctor prescribed an antibiotic to treat the UTI. Take exactly as directed. Be sure to take all the medication prescribed, even if your symptoms disappear. If you stop treatment early, the infection may not be fully treated and the symptoms could come back again. 2. Get plenty of rest. You may take acetaminophen for fever and aches. 3. Drink 6 to 8 glasses of fluids, especially water, every day. This helps wash out germs from your urinary tract. Cranberry juice or other sources of vitamin C are also good for you. 4. Urinate often, as soon as you feel the urge. Empty your bladder completely. Urinate before and after you have sex. 5. Always wipe from front to back after going to the bathroom. This pushes germs away from your bladder, rather than towards it. 6. Showers are better than baths, and you should wash the genital area daily. Avoid bubble bath or bath oils if you do take a bath. 7. Wear underwear and pantyhose with a cotton crotch. CONTACT YOUR DOCTOR: 1. You have a temperature over 102F (38.8C) after 48 hours on medication. 2. You notice blood in your urine. 3. Your symptoms don't improve in 2 days. 4. You develop nausea, vomiting, diarrhea, or a rash. 5. You develop new or unexplained symptoms. These may be related to the medication you are taking. 6. Your symptoms return after you finish treatment. RETURN TO THE EMERGENCY DEPARTMENT IF: You develop vomiting and can't keep your medication or fluids down. Prescriptions ordered this encounter Disp Refills Start End NITROFURANTOIN MONOHYDRATE AND MACROCR* 14 c* 0 08/29/2018 09/05/2018 Route: ORAL Sig: Take 1 capsule by mouth twice daily with meals for 7 days. Encounter Status:Closed by DANITZA COLIN CNP on 08/29/18 Observed: 08/29/2018 Status: F Source: [place] URINE CULTURE 3:39 AM [facility] REPOSITORY Sp. Request/Comment: - Specimen received in preservative Culture Result - 10,000 - <50,000 CFU/ml Normal urogenital erick Performed By: #### URCUL #### [facility] [address] [place] [id number] ALLERGIES ALLERGIES DATE TYPE / NAME / CODE REACTION SEVERITY SOURCE CODE 2018 Drug Sulfa (Sulfonamide Anaphylaxis Unknown [place] Allergy/41 Antibiotics)/F0010 Community [id number]( 51603(RXNORM) [facility] OMED CT) Repository 2018 Drug erythromycin Hives Unknown [place] Allergy/41 base/[id number](RX Community 1103674(SN NORM) [facility] OME CT) Repository 2018 Drug venom-honey Swelling Unknown [place] Allergy/41 bee/[id number](RXN Community 6376712( ORM) [facility] OME CT) Repository 06/26/2013 Drug SULFA (SULFONAMIDE ANAPHYLAXIS [facility] Class/4195 ANTIBIOTICS) Main [place] [address](SNOM Repository ED CT) 06/26/2013 DRUG AZITHROMYCIN RASH [facility] INGREDI/41 Main [place] [id number](SN Repository OMED CT) ENCOUNTERS ENCOUNTERS ADMIT/DISCHARGE ACCOUNT ADMITTING ENCOUNTER LOCATION SOURCE NUMBER CLASS 09/17/2018/09/17/19 [id number] MATEO REECE Ambulatory [address] Repository 09/17/2018 [id number] Ambulatory [facility] ing:LABSPEC Repository 09/03/2018/09/03/19 [id number] Emergency [address] ing:ED Repository 09/03/2018/09/04/19 [id number] Ambulatory [address] Repository 08/29/2018/08/30/19 [id number] Ambulatory [address] Repository PAYERS PAYERS ENCOUNTER GUARANTOR PAYER SUBSCRIBER SOURCE 09/17/2018 JACOB PANG Primary [place] [address] [place] [address], me Insurance:MEDICAL RED HOUSEDOB: [facility] [id number]: (330) [facility] [id number] () Number: Repository [id number] Date:[id number] [address], [place] [address]AL: 09/17/2018 Secondary NOT GIVENUNK [place] Insurance:SELF PAY [facility] Number: Effective Repository Date:2018-09-17 2018 JACOB PANG [facility] [address] [place] [address] [facility] [id number]: (330) [facility] [id number] [id number] () Number: Repository [id number] Date:[id number] [address], [place] [address]BX: 2018 Secondary NOT GIVENUNK [place] Insurance:SELF PAY [facility] Number: Effective Repository Date:2018
== END ==
PROVIDERS: Visit Provider Obstetrics & Gynecology
DX: Z12.4 Encounter for screening for malignant neoplasm of cervix (principal); Z11.3 Encounter for screening for infections with a predominantly sexual mode of transmission
CPT/HCPCS: 87491; 87591; 87624; 88175; G0145

== ENCOUNTER → 2021-07-26 13:26 | Outpatient (CLI) | payer OTHER, SELFPAY ==
[2021-07-26 15:07] LABS: Erythrocyte Sedimentation Rate 10 mm/hr (0-30)
[2021-07-26 15:36] LABS: CRP < 2.90 mg/L (0.0-3.0); Prealbumin 34.9 mg/dL (20.0-40.0); Rheumatoid Factor < 10.0 IU/mL (<15); T4 Total, Thyroxin 8.2 ug/dL (4.8-13.9); Thyroid Stim Hormone (TSH) 2.28 uIU/mL (0.358-3.74)
== END ==
PROVIDERS: PCP Family Medicine; Referring Provider Ophthalmology; Visit Provider Ophthalmology
DX: H16.223 Keratoconjunctivitis sicca, not specified as Sjogren's, bilateral (principal); H52.4 Presbyopia
CPT/HCPCS: 36415; 84134; 84436; 84443; 85652; 86038; 86140; 86235; 86431